=== PATIENT | female | born 1935 | race African-American/Black ===

== ENCOUNTER 2021-09-02 20:27 | Emergency (ER) | payer MEDICARE, OTHER ==
[~2021-09-02] VITALS: Ht 162.6 cm; Wt 53.0 kg
[2021-09-03 12:25] VITALS: BP 138/87
== END 2021-09-03 12:35 | disposition home or self-care (01) ==
LOC: ER 20:27
DX: T59.811A Toxic effect of smoke, accidental (unintentional), initial encounter (principal); X58.XXXA Exposure to other specified factors, initial encounter; I73.9 Peripheral vascular disease, unspecified
CPT/HCPCS: 93005; 99285